=== PATIENT | male | born 1975 | race Caucasian/White ===

== ENCOUNTER 2018-12-07 06:48 | Day surgery (SDC) | payer OTHER ==
[~2018-12-07 06:48] MED LIST: Metoclopramide 10 MG/2 ML SDV IV PRN
[2018-12-07] MEDS: Sodium Chloride 0.9% 1,000 ML IV SCH (07:23)
[2018-12-07] MEDS ORDERED: Propofol 200 MG/20 ML SDV ONE (09:10)
--- NOTE | 2018-12-07 14:39 | OR ---
DATE OF OPERATION: 12/07/2018 PROCEDURE: Colonoscopy. ANESTHESIA: MAC. PREOPERATIVE DIAGNOSIS: History of colon polyps and family history of colon cancer. POSTOPERATIVE DIAGNOSIS: History of colon polyps and family history of colon cancer. ESTIMATED BLOOD LOSS: None. COMPLICATIONS: None. INDICATION FOR THE PROCEDURE: The patient is a 43-year-old male with a family history of colon cancer. One of his parents had colon cancer at a young age less than 50. The patient has had previous colonoscopy and was found to have several polyps at that time. Denies any change in bowel habits since then. The patient is here for repeat surveillance colonoscopy. DESCRIPTION OF PROCEDURE: Informed consent was obtained from the patient. The patient was taken to the OR and placed on table in left lateral decubitus position. Monitored anesthesia care was administered. Digital rectal exam was performed and was normal. Colonoscope was then advanced through the anus and directed toward the cecum. Cecum was reached and identified by appendiceal orifice and ileocecal valve. Colonoscope was then slowly withdrawn. No polyps, no masses. No areas of ischemia or inflammation. No AV malformations or diverticula noted. The colonoscope was then withdrawn. Rectum also appeared to be normal. Colonoscope was then withdrawn completely. FINDINGS: Normal colonoscopy. RECOMMENDATIONS: Due to family history and history of polyps, would recommend repeat surveillance colonoscopy in 5 years. KAYLI/SAMPSON /[id number]
== END 2018-12-07 10:30 | disposition home or self-care (01) ==
LOC: LB.SDS 06:48
PROVIDERS: ATTEND Surgery
DX: Z12.11 Encounter for screening for malignant neoplasm of colon (principal); Z80.0 Family history of malignant neoplasm of digestive organs
CPT/HCPCS: 45378; J2704; J7030

== ENCOUNTER 2023-12-15 08:43 | Day surgery (SDC) | payer OTHER ==
[2023-12-15] MEDS: Sodium Chloride 0.9% 1,000 ML IV SCH (09:11)
== END 2023-12-15 11:45 | disposition home or self-care (01) ==
LOC: LB.SDS 08:43
PROVIDERS: ATTEND Surgery
DX: Z12.11 Encounter for screening for malignant neoplasm of colon (principal); I10 Essential (primary) hypertension; Z86.010 Personal history of colon polyps; Z80.0 Family history of malignant neoplasm of digestive organs
CPT/HCPCS: J2704; J7030